=== PATIENT | male | born 1995 | race Caucasian/White ===

== ENCOUNTER 2020-09-03 23:05 | Emergency (ER) | payer SELFPAY ==
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
[2020-09-03 23:07] VITALS: BP 122/72; PULSE 73; RESP 18; TEMP 37.1; O2SAT 100
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
[2020-09-04] MEDS: KETOROLAC (*BKC) 60 MG/2 ML VIAL IM (00:03)
--- NOTE | 2020-09-04 01:05 | PC.NURSE ---
At the request of Officer Noah, #[id number], [facility] [place] Department, Blood and urine samples were obtained from this patient. This patient was informed that this collection is for a legal sample and will be provided to the aforementioned officer to be used to test for alcohol and/or drugs. He was further informed that this sample is not part of a medical procedure or his current medical treatment. The patient, who was alert and oriented to x4, read the permit for legal sample collection while the contents were read aloud by this RN. The patient verbalized understanding of the permit and he signed the form. His signature was witnessed by this RN and Officer Noah, #[id number]. The patient was then escorted to the bathroom. Here I provided him with a sealed, unopened, urine collection cup. The seal on the cup was verified by the patient and witnessed by Officer Noah. Under witness of this RN the patient filled the cup with his urine and was returned to the patient room. He maintained custody of his urine sample throughout this period. When in the room his sample was placed on the table and the patient was handed the sealed specimen collection kit. Intact seal was verified by both the patient and the officer at that time. Seal was broken by the officer in direct view of this RN and the patient. the two urine cups from the collection kit were removed and filled with the patient's urine sample. The patient and the officer both witnessed this shopper marketing manager the patient's sample into the collection cups. The urine collection labels from this kit were filled out, timed, dated, and signed by the Officer in view of the patient. the patient then took each urine label and sealed the urine specimen cups. These cups were then placed back into the foam nguyen and left in view of the patient. Venipuncture was then performed to obtain blood samples for this kit. This was done with use of the iodine skin cleansing pad from the kit and blood was then collected into the two zimmerman top blood tubes from the kit. No alcohol wipes were used during the process of venipuncture for this sample. As each tube was collected it was replaced into the cardboard nguyen in sight of the patient. After the collection process was finished, blood tube labels from the kit were filled out, timed, dated, and signed by the Officer in view of the patient. The patient then took the labels and placed them over and sealing the blood tubes. The foam container holding the patient's urine samples and the cardboard container holding the patient's blood samples were placed into the ziplock bag with the bag insert and then placed into the specimen collection kit by the patient. the patient then closed the kit and placed the seal pony ride operator the kit. this was done in view of Officer Noah. I took the sealed specimen collection kit from the patient and handed the sealed collection kit to Officer Noah who requested my signature, along with his, across the seal of the box. At no time during this process, until I handed the sealed kit to officer Noah, were the patient's samples of blood or urine out of my direct site.
[2020-09-04 02:07] VITALS: BP 108/72; PULSE 62; RESP 16; O2SAT 100
== END 2020-09-04 02:22 | disposition home or self-care (01) ==
PROVIDERS: Emergency Provider General Practice
DX: S39.012A Strain of muscle, fascia and tendon of lower back, initial encounter (principal); S63.502A Unspecified sprain of left wrist, initial encounter; S70.01XA Contusion of right hip, initial encounter; V43.52XA Car driver injured in collision with other type car in traffic accident, initial encounter
CPT/HCPCS: 71046; 72100; 73110; 73502; 96372; 99284; J1885